=== PATIENT | male | born 1945 | race Caucasian/White ===

== ENCOUNTER 2017-07-04 15:33 | Emergency (ER) | payer OTHER ==
[~2017-07-04] VITALS: Ht 167.6 cm; Wt 115.2 kg
[~2017-07-04 15:33] MED LIST: ECO81 PO; IBUPROFEN400 MG PO; METOPROLOL TART25 M1 PO; STOOL SOFTENER250 MG PO; VITAMIN D32000 I2 PO; ZESTRIL20 MG PO; ZOC10 PO
[2017-07-04 16:52] LABS: BASOPHIL % 0.5 % (0-2); PLATELET COUNT 205 x10^3mcL (130-400)
[2017-07-04 17:04] LABS: CALCIUM 9.6 mg/dL (8.5-10.1); CARBON DIOXIDE 31.4 mmol/L (21-32); CHLORIDE SERUM 103 mmol/L (98-107); CREATININE SERUM 1.1 mg/dL (0.7-1.3); GLUCOSE SERUM 166 mg/dL (74-106); POTASSIUM SERUM 4.2 mmol/L (3.5-5.1); SODIUM SERUM 139 mmol/L (136-145)
[2017-07-04 17:07] LABS: ALBUMIN 3.8 g/dL (3.4-5.0); ALKALINE PHOSPHATASE 94 U/L (46-116); ALT/SGPT 27 U/L (16-63); AST/SGOT 17 U/L (15-37); BILIRUBIN TOTAL 0.88 mg/dL (0.20-1.00); TOTAL PROTEIN, SERUM 7.8 g/dL (6.4-8.2)
[2017-07-04 17:40] VITALS: BP 167/95
== END 2017-07-04 17:40 | disposition home or self-care (01) ==
LOC: ED 15:33
PROVIDERS: Emergency Medicine
DX: R42 Dizziness and giddiness (principal); E11.9 Type 2 diabetes mellitus without complications; I10 Essential (primary) hypertension
CPT/HCPCS: J8597; Q0092

== ENCOUNTER 2018-11-29 15:14 | Emergency (ER) | payer OTHER ==
[~2018-11-29] VITALS: Ht 172.7 cm; Wt 109.3 kg
[2018-11-29 15:18] VITALS: Ht 172.7 cm; Wt 109.3 kg
[2018-11-29 17:08] LABS: BASOPHIL % 0.2 % (0-2); PLATELET COUNT 196 x10^3mcL (130-400); RED CELL DISTRIBUTION WIDTH 12.9 % (11.5-14.5)
[2018-11-29 17:14] LABS: microscopic required? YES; urine erythrocyte TRACE (NEGATIVE)
[2018-11-29 17:22] LABS: CALCIUM 9.8 mg/dL (8.5-10.1); CARBON DIOXIDE 21.9 mmol/L (21-32); CHLORIDE SERUM 98 mmol/L (98-107); CREATININE SERUM 1.4 mg/dL (0.7-1.3); GLUCOSE SERUM 375 mg/dL (74-106); POTASSIUM SERUM 3.7 mmol/L (3.5-5.1); SODIUM SERUM 134 mmol/L (136-145)
[2018-11-29 17:27] LABS: ALBUMIN 3.7 g/dL (3.4-5.0); ALKALINE PHOSPHATASE 108 U/L (46-116); ALT/SGPT 28 U/L (16-63); AST/SGOT 13 U/L (15-37); BILIRUBIN TOTAL 1.4 mg/dL (0.20-1.00); LIPASE 113 IU/L (73-393)
[2018-11-29 18:54] VITALS: BP 132/76
[2018-11-30] MEDS ORDERED: PRAVACHOL20 MG PO (13:19)
[2018-11-30] MEDS ORDERED: ALENDRONATE SOD70 M2 PO (13:19)
[2018-11-30] MEDS ORDERED: GOOD SENSE ASPI81 M3 PO (13:22)
[2018-11-30] MEDS ORDERED: BENAZEPRIL HYDR20 M1 PO (13:22)
[2018-11-30] MEDS ORDERED: ZESTRIL20 MG PO (13:23)
== END 2018-11-29 18:54 | disposition home or self-care (01) ==
LOC: ED 15:14
PROVIDERS: Emergency Medicine
DX: N39.0 Urinary tract infection, site not specified (principal); R42 Dizziness and giddiness; E11.9 Type 2 diabetes mellitus without complications; I10 Essential (primary) hypertension; N28.9 Disorder of kidney and ureter, unspecified; E78.00 Pure hypercholesterolemia, unspecified
CPT/HCPCS: J0696; J1885; J2405; J7030

== ENCOUNTER 2018-11-30 07:25 | Inpatient (IN) | payer OTHER ==
[~2018-11-30] VITALS: Ht 172.7 cm; Wt 112.0 kg
--- NOTE | 2018-11-30 07:30 | NUR ---
PURPLE SEPSIS CHECKLIST INTIATED.
--- NOTE | 2018-11-30 07:51 | NUR ---
PT WILL FOR ALOC, FOUND AT BEDSIDE BY FAMILY THIS AM ALTERED. ARRIVED AT BEDSIDE UNRESPONSIVE BUT THEN SHORTLY AFTER ARRIVAL, PATIENT IS AAOX4, ABLE TO FULLY SPEAK AND ANSWER ALL QUESTIONS. PER MEDICS, PATIENT WAS HERE PRIOR DAY AND WAS PRESCRIBED ANTIBIOTICS AND DID NOT HERD TESTER THE ANTIBIOTICS. DR. FALK AT BEDSIDE PERFORMED MSE
[2018-11-30 08:43] LABS: BASOPHIL % 0.1 % (0-2); PLATELET COUNT 150 x10^3mcL (130-400); RED CELL DISTRIBUTION WIDTH 12.8 % (11.5-14.5)
--- NOTE | 2018-11-30 08:44 | NUR ---
ADDED PT/PTT TO LABS W/ VERBAL OK DR. FALK PER SEPSIS CHECKLIST/PT MEETS SIRS CRITERIA.
--- NOTE | 2018-11-30 08:58 | NUR ---
PER DR. FALK, REMOVE COOLING TOWELS. PATIENT TOLERATING WELL
[2018-11-30 09:27] LABS: ALKALINE PHOSPHATASE 107 U/L (46-116); ALT/SGPT 20 U/L (16-63); AST/SGOT 10 U/L (15-37); BILIRUBIN TOTAL 1.9 mg/dL (0.20-1.00); CALCIUM 8.9 mg/dL (8.5-10.1); CARBON DIOXIDE 19.9 mmol/L (21-32); CHLORIDE SERUM 101 mmol/L (98-107); CREATININE SERUM 1.3 mg/dL (0.7-1.3); GLUCOSE SERUM 279 mg/dL (74-106); LIPASE 59 IU/L (73-393); MAGNESIUM 1.2 mg/dL (1.8-2.4); SODIUM SERUM 135 mmol/L (136-145); T4(THYROXINE) 5.7 ug/dL (4.7-13.3); TOTAL PROTEIN, SERUM 6.9 g/dL (6.4-8.2)
--- NOTE | 2018-11-30 09:27 | NUR ---
PT'S LACTIC ACID ELEVATED; MET SEVERE SEPSIS GUIDELINE @ 0920. REPEAT LACTIC ACID ORDERED IN 3 HOURS (FOR 1120) PER DR. FALK.
--- NOTE | 2018-11-30 09:55 | NUR ---
DR. FALK AWARE OF BP 88/54 WITH A MAP OF 67
[2018-11-30 10:09] LABS: CHOLESTEROL 86 mg/dL (<200); HDL CHOLESTEROL 33 mg/dL (40-60)
--- NOTE | 2018-11-30 10:24 | NUR ---
DR. FALK AWARE OF PATIENT'S CURRENT BP OF 86/58 WITH A MAP OF 65.
--- NOTE | 2018-11-30 10:49 | NUR ---
PT RESTING AT BEDSIDE IN NAD
--- NOTE | 2018-11-30 11:02 | NUR ---
CALLED LAB FOR UA RESULT, THEY SAID THEY WILL GO FIND THE SAMPLE & RESULT SHOULD BE BACK IN 20 MINUTES.
[2018-11-30 11:20] LABS: UA SPECIFIC GRAVITY <=1.005 (1.005-1.035); microscopic required? YES
--- NOTE | 2018-11-30 11:20 | NUR ---
DESPITE RECEIVING URINE FOR UDS & URINE CULTURE, LAB COULD NOT FIND SAMPLE FOR UA, & A 2ND SAMPLE HAD TO BE SENT OVER.
[2018-11-30 11:21] LABS: urine erythrocyte NEGATIVE (NEGATIVE)
[2018-11-30 11:23] LABS: AMPHETAMINE QUAL UR NONE DETECTED (See below)
--- NOTE | 2018-11-30 11:46 | NUR ---
PT RESTING AT BEDSIDE IN NAD. BREATHING E/U BILATERAL CHEST RISE. PATIENT IN SUPINE POSITION.
--- NOTE | 2018-11-30 12:25 | NUR ---
PATIENT RESTING AT BEDSIDE IN NAD. BREATHING E/U BILATERAL CHEST RISE. BED AT LOWEST LEVEL. CALL LIGHT IN REACH.
[2018-11-30] MEDS ORDERED: ALENDRONATE SOD70 M2 PO (13:19)
[2018-11-30] MEDS ORDERED: PRAVACHOL20 MG PO (13:19)
[2018-11-30] MEDS ORDERED: GOOD SENSE ASPI81 M3 PO (13:22)
[2018-11-30] MEDS ORDERED: BENAZEPRIL HYDR20 M1 PO (13:22)
[2018-11-30] MEDS ORDERED: ZESTRIL20 MG PO (13:23)
--- NOTE | 2018-11-30 14:34 | NUR ---
REPORT OFF TO TERRENCE DAWN
[2018-11-30 14:55] VITALS: BP 107/64
--- NOTE | 2018-11-30 15:04 | NUR ---
RECEIVED PT FROM ER. PT ADMIT FOR HYPERPYREXIA, SEPSIS, PT IS A/O X4, VERAL RESPONSIVE, ABLE TO TELL WHAT HE NEEDS, LUNG SOUND CLEAR BILATERAL, NO COUGH, NO SOB. PT IS ON 2L/MIN O2 VIA NC/ PO2 98%, PT IS ON TELE 32, NSR, DENY ANY CHEST PAIN OR DISCOMFORT, BOWEL SOUND PRESENT ALL 4 QUADRANTS, NO DISTENTION, NO TENDER. PEDAL PULSE PRESENT BOTH FEET, NO EDEMA, IV AT RIGHT FA, NO LEAKING, NO INFILTRATION. ARRIAGA CATH IN PLACE, ALL ADLS ASSIST, ALL NEED MET, CALL LIGHT IN REACH, WILL CONTINUE TO MONITOR.
--- NOTE | 2018-11-30 16:00 | NUR ---
CALLED DR. RAUSCH REGARDING THE PT MG 1.2, AND ALOS IF CAN START THE LOVENOX TODAY. NEW ORDER RECEIVED AND CARRIED OUT.
[2018-11-30 16:28] LABS: POTASSIUM SERUM 2.7 mmol/L (3.5-5.1)
[2018-11-30 17:57] VITALS: BP 106/68
--- NOTE | 2018-11-30 18:19 | NUR ---
PT IS A/O X4 VERBAL RESPONSIVE, DENY ANY RESPIRATORY DISTRESS, DENY ANY PAIN OR DISCOMFORT, IV AT RIGHT AC AND HAND, NO LEAKING, NO INFILTRATION. ALL ADLS ASSIST, ALL NEED MET, CALL LIGHT IN REACH, WILL COTNINUE TO MONITOR.
--- NOTE | 2018-11-30 19:45 | NUR ---
RECEIVED AWAKE AND VERBALLY RESPONSIVE. ABLE TO MAKE NEEDS KNOWN IN FAROESE ONLY.RESPIRATION EVEN AND UNLABORED. NO S/S OF ACUTE DISTRESS, ON TE.E %32 SHOWS SR AT 74-83/MIN. DENIES ANY CHEST PAIN/DISCOMFORT. WILL CONTINUE TO MONIOTR.
[2018-11-30 20:13] VITALS: BP 121/68
--- NOTE | 2018-11-30 21:30 | NUR ---
BLOOD CULTURE SHWOS GRAM NEGATIVE BACILLI, PENDING RESULT OF DRUG SENSITIVITY. DR DALLAS MADE AWARE, WILL WAIT FOR THE RESULT OF SENSITIVITY, PT CURRENTLY ON ROCEPHIN 1GM IVPB DAILY. PT IS AFEBRILE AT THIS TIME.
--- NOTE | 2018-11-30 22:00 | NUR ---
DUE MEDICATIONS GIVEN AND WELL TOLERATED. NO S/S OF ASPRATION NOTED. BED IN LOWEST POSITION FOR SAFETY.
[2018-11-30 23:30] VITALS: BP 118/67
--- NOTE | 2018-12-01 00:01 | NUR ---
EYES CLOSED, NO FACIAL GRIMACING NOTED. RESPIRATION EVEN AND UNLABORED. APPARENTLY PATIENT ASLEEP SOUNDLY. CALL LIGHT WITHIN REACH.
--- NOTE | 2018-12-01 06:05 | NUR ---
ARRIAGA CATH TO BSD WITH YELLOW URINE OUTPUT. KEPT CLEAN AND DRY; ALL NEEDS ATTENDED.
[2018-12-01 06:12] LABS: BASOPHIL % 0.1 % (0-2); PLATELET COUNT 134 x10^3mcL (130-400); RED CELL DISTRIBUTION WIDTH 13.4 % (11.5-14.5)
[2018-12-01 06:24] VITALS: BP 119/71
[2018-12-01 06:37] LABS: CALCIUM 8.4 mg/dL (8.5-10.1); CHLORIDE SERUM 105 mmol/L (98-107); GLUCOSE SERUM 225 mg/dL (74-106); POTASSIUM SERUM 3.7 mmol/L (3.5-5.1); SODIUM SERUM 137 mmol/L (136-145)
--- NOTE | 2018-12-01 07:20 | NUR ---
AAO X4.DENIES ANY PAIN/DISCOMFORT.LUNG SOUND DIM ON THE BASES.ON SR ON THE MONITOR.IVF NS GOING AT 100 ML/HR INFUSING WELL.ARRIAGA DRAINING TO GRAVITY YELLOW IN COLOR.CALL LIGHT WITHIN REACH.INSTRUCTED TO CALL FOR ANY PAIN/DISCOMFORT.WILL CONTINUE TO MONITOR PT.
[2018-12-01 09:47] VITALS: BP 127/77
[2018-12-01 14:11] VITALS: BP 144/83
--- NOTE | 2018-12-01 14:38 | NUR ---
GAVE PT TYLENOL 650 MG PO FOR C/O L HIP PAIN AT 6/10 PAIN SCALE.WILL CONTINUE TO MONITOR PT.
--- NOTE | 2018-12-01 15:38 | NUR ---
WENT TO RECHECK PAIN LEVEL WENT DOWN TO 2/10,CLAIMS TO FEEL A LOT BETTER.
--- NOTE | 2018-12-01 15:55 | NUR ---
CATHETER HYGIENE APPLIED PER HOSP.PROTOCOL.
[2018-12-01 17:26] VITALS: BP 127/80
--- NOTE | 2018-12-01 18:41 | NUR ---
NO SIGNIFICANT CHANGE NOTED.WILL ENDORSE TO NEXT SHIFT.
--- NOTE | 2018-12-01 19:30 | NUR ---
PT IS A/O x4. ON TELE #32, NSR. DENIES ANY CHEST PAIN OR PRESSURE. PULSES ARE PRESENT. NO EDEMA NOTED. LUNGS CLEAR BUT DIMINISHED AT BASES. BOWEL SOUNDS PRESENT. ABD SOFT AND OBESED. DENIES ANY ABD DISTRESS. PT HAS A ARRIAGA. BAG BELOW THE BLADDER, NO DEPENDENT LOOP. YELLOW URINE NOTED. PT C/O SOME NAUSEA WHEN EATING AT TIMES. DENIES N/V AT THIS TIME. SKIN WARM AND INTACT. DENIES ANY PAIN AT THIS TIME. IV ON R HAND INTACT AND PATENT. NO SIGN OF IRRITATION OR INFILTRATION NOTED. BED IS AT LOWEST SETTING. CALL LIGHT WITHIN REACH. WILL CONTINUE TO MONTIOR.
[2018-12-01 20:03] VITALS: BP 145/90
--- NOTE | 2018-12-02 01:53 | NUR ---
PT IS RESTING IN BED. NO SIGN OF DITRESS NOTED. ARRIAGA BAG BELOW THE BLADDER. BED IS AT LOWEST SETTING. CALL LIGHT WITHIN REACH. WILL CONTINUE TO MONTIOR.
--- NOTE | 2018-12-02 02:10 | NUR ---
ASSUMED CARE FROM Julia CLARKEPATIENT SOUND ASLEEP.DID NOT DISTURBED.BREATHING EASY.TELE 32 SR.NS AT 100 CC/ HOUR.R HAND IV SITE INTACT.ARRIAGA INTACT,HAS BPH,ON FLOMAX.CALL LIGHT IN REACH.
--- NOTE | 2018-12-02 02:32 | NUR ---
ENDORSE ALL CARE TO RN ANITHA.
[2018-12-02 05:08] VITALS: BP 153/89
[2018-12-02 05:58] LABS: BASOPHIL % 0.4 % (0-2); PLATELET COUNT 148 x10^3mcL (130-400)
[2018-12-02 06:06] LABS: CALCIUM 8.7 mg/dL (8.5-10.1); CARBON DIOXIDE 20.1 mmol/L (21-32); CHLORIDE SERUM 104 mmol/L (98-107); CREATININE SERUM 0.9 mg/dL (0.7-1.3); GLUCOSE SERUM 235 mg/dL (74-106); MAGNESIUM 1.9 mg/dL (1.8-2.4); POTASSIUM SERUM 3.7 mmol/L (3.5-5.1); SODIUM SERUM 135 mmol/L (136-145)
--- NOTE | 2018-12-02 06:09 | NUR ---
NEW IV BAG.NO AM PILL THIS AM.I AND O MEASURED.WILL ENDORSE TO NEXT SHIFT.
--- NOTE | 2018-12-02 07:30 | NUR ---
RECEIVED PATIENT SITTING UP IN BED. ALERT ORIENTED [place]GY[place] SPEAKING. IVF INFUSING WELL TO RT HAND. RESP EVEN AND UNLABORED, LUNGS DIMINISHED ON BASES, ON ROOM AIR. NSR ON TELE, DENIES ANY CHEST PAIN . AMBULATES AD EL. PATIENT IS OBESE ABD SOFT AND ROUND, BOWEL SOUNDS ACTIVE. ARRIAGA CATH DRAINING EDSON URINE. NO ACUTE DISTRESS NOTED. WILL CONTINUE TO MONITOR.
--- NOTE | 2018-12-02 08:53 | NUR ---
PATIENT C/O HAVING A H/A 5/10 ON THE PAIN SCALE. MEDICATED WITH TYLENOL AND WILL MONITOR FOR RELIEF.
[2018-12-02 10:06] VITALS: BP 144/87
--- NOTE | 2018-12-02 10:42 | NUR ---
PATIENT'S PLAN OF CARE WAS DISCUSSED AND REVIEWED WITH CONFIGURATION CONSULTANT:SKYE BERRIOS. I HAVE REVIEWED THE DATA COLLECTION BY CONFIGURATION CONSULTANT (NAME):SKYE BERRIOS. ENTERED ON (DATE/TIME):12/02/18. I CONCUR WITH THE DATA AND ANY EXCEPTIONS OR COMMENTS ARE LISTED BELOW:
--- NOTE | 2018-12-02 10:50 | NUR ---
BLADDER TRAINING STARTED AT THIS TIME ORDERED. WILL CONTINUE TO MONITOR.
--- NOTE | 2018-12-02 13:47 | NUR ---
BLADDER TRAINING COMPLETED. ARRIAGA CATH DC'D ORDERED. WILL MONITOR FOR PATIENT'S VOIDING.
[2018-12-02 15:24] VITALS: BP 151/89
--- NOTE | 2018-12-02 15:25 | NUR ---
RECEIVED BLOOD CULTURE AND URINE CULTURE RESULTS, CALLED AND INFORMED TO DR. RAUSCH, NEW ORDER RECEIVED AND CARRIED OUT.
--- NOTE | 2018-12-02 15:29 | NUR ---
PATIENT HAS VOIDED X 1 AT THIS TIME. WILL CONTINUE TO MONITOR.
--- NOTE | 2018-12-02 15:29 | NUR ---
LAB RESULTS RECEIVED AND DR RAUSCH NOTIFIED. NEW ORDER RECEIVED. WILL CONTINUE MONITOR.
--- NOTE | 2018-12-02 15:57 | NUR ---
PATIENT SITTING UP IN BED WITH FAMILY MEMBERS AT BEDSIDE. DENIES ANY PAIN OR DISCOMFORT. IVF INFUSING WELL. FAMILY MEMBERS AWARE THAT PATIENT IS NOW IN CONTACT ISOLATION AND FOR THE NEED TO FOLLOW CONTACT ISO PROTOCOL. WILL CONTINUE TO MONITOR.
--- NOTE | 2018-12-02 16:59 | NUR ---
PATIENT OOB AMBULATED TO THE BATHROOM, VOIDED WELL. WILL CONTINUE TO MONITOR.
[2018-12-02 17:50] VITALS: BP 152/93
--- NOTE | 2018-12-02 19:40 | NUR ---
AOX4. TELE #32, SR. LUNGS DIMINISHED ON RA. PULSES PALPABLE. EDEMA TO BLE. BOWEL SOUNDS ACTIVE. VOIDS FREELY. AMBULATORY. SKIN INTACT. DENIES PAIN. AFEBRILE. IV TO R HAND, PATENT AND INFUSING. BED IN LOWEST POSITION, 2 SIDE RAILS UP, CALL LIGHT IN REACH. INSTRUCTED TO CALL FOR ASSISTANCE.
[2018-12-02 21:08] VITALS: BP 136/78
--- NOTE | 2018-12-03 02:05 | NUR ---
RESTING IN BED WITH EYES CLOSED. BREATHING EVEN AND UNLABORED. NO ACUTE DISTRESS NOTED. WILL CONTINUE TO MONITOR.
--- NOTE | 2018-12-03 05:50 | NUR ---
NO ACUTE CHANGES. AFEBRILE OVERNIGHT. WILL ENDORSE TO ONCOMING RN.
[2018-12-03 06:07] VITALS: BP 158/88
--- NOTE | 2018-12-03 07:30 | NUR ---
PATIENT SITTING UP ON THE SIDE OF THE BED. ALERT ORIENTED, [place]IZ[place] SPEAKING. VOIDING WELL, USES URINAL AT BEDSIDE AND AMBULATES TO THE BATHROOM PRN WITH STEADY GAIT. IVF INFUSING WELL TO RT HAND, SITE PATENT. NO RESP DISTRESS NOTED. PATIENT IS OBESE, ABD SOFT AND ROUND, +2 EDEMA NOTED BLE. PATIENT REMAINS IN CONTACT ISOLATION. WILL CONTINUE TO MONITOR.
[2018-12-03] MEDS ORDERED: BACTRIM1 TAB PO (08:09)
[2018-12-03] MEDS ORDERED: FINASTERIDE5 M1 PO (08:10)
[2018-12-03] MEDS ORDERED: FLO4 PO (08:10)
--- NOTE | 2018-12-03 08:20 | NUR ---
DR RAUSCH INTO SEE PATIENT AND DISCHARGE ORDER RECEIVED.
[2018-12-03 09:43] VITALS: BP 158/88
--- NOTE | 2018-12-03 10:22 | NUR ---
PATIENT SITTING UP ON THE SIDE OF THE BED. REMAINS IN CONTACT ISOLATION. DENIES ANY PAIN OR DISCOMFORT. CONTINUES TO VOID WELL. WILL CONTINUE TO MONITOR.
[2018-12-03 10:32] VITALS: BP 152/91
[2018-12-03 11:45] VITALS: BP 188/87
--- NOTE | 2018-12-03 12:42 | NUR ---
PATIENT'S PLAN OF CARE WAS DISCUSSED AND REVIEWED WITH TERRITORY REPRESENTATIVE:SKYE BERRIOS. I HAVE REVIEWED THE DATA COLLECTION BY TERRITORY REPRESENTATIVE (NAME):SKYE BERRIOS. ENTERED ON (DATE/TIME):12/03/18 I CONCUR WITH THE DATA AND ANY EXCEPTIONS OR COMMENTS ARE LISTED BELOW:
[2018-12-03 13:37] VITALS: Ht 172.7 cm; Wt 112.0 kg
--- NOTE | 2018-12-03 14:39 | NUR ---
PATIENT IS IN BED APPEARS TO BE RESTING WELL. NO CHANGE IN CONDITION NOTED.
[2018-12-03 16:28] VITALS: BP 148/95
--- NOTE | 2018-12-03 17:50 | NUR ---
PATIENT READY FOR D/C HOME. HL AND TELE DC'D. PRESCRIPTIONS AND DISCHARGE INSTRUCTIONS GIVEN. PERSONAL BELONGINGS LIST SIGNED. EDUCATION PROVIDED. CONDITION APPEARS STABLE.
== END 2018-12-03 18:00 | disposition home or self-care (01) | DRG 872 ==
LOC: ED 07:25 → DU 13:20
PROVIDERS: Emergency Medicine; ADMIT Internal Medicine Pulmonary Disease
DX: A41.51 Sepsis due to Escherichia coli [E. coli] (principal); N39.0 Urinary tract infection, site not specified; I10 Essential (primary) hypertension; E11.65 Type 2 diabetes mellitus with hyperglycemia; E78.00 Pure hypercholesterolemia, unspecified; E66.01 Morbid (severe) obesity due to excess calories; N40.1 Benign prostatic hyperplasia with lower urinary tract symptoms; R33.8 Other retention of urine; Z68.35 Body mass index [BMI] 35.0-35.9, adult; Z79.84 Long term (current) use of oral hypoglycemic drugs
CPT/HCPCS: 82962; 87804; G0480; J0696; J1650; J1956; J2543; J3475; J3480; J7030; Q0092